=== PATIENT | male | born 1960 | race Caucasian/White ===

== ENCOUNTER 2017-04-05 15:12 | Inpatient (IN) | payer MEDICARE, MEDICAID ==
[~2017-04-05] VITALS: Ht 170.2 cm; Wt 74.4 kg
[~2017-04-05 15:12] MED LIST: ALBU8HFA IH; DIVA500T35 PO; DSS100 PO; LURA40 PO; MULT-1238 PO
[2017-04-05 15:23] VITALS: BP 96/64
[2017-04-05] MEDS ORDERED: TRAZ-144 PO (15:49)
[2017-04-05] MEDS ORDERED: ARIP10TA8 PO (15:49)
[2017-04-05] MEDS ORDERED: BENZ2TAB10 PO (15:49)
[2017-04-05] MEDS ORDERED: DIVA500T35 PO (15:49)
[2017-04-05] MEDS ORDERED: BENZ1TAB10 PO (15:49)
[2017-04-05 16:15] VITALS: BP 102/60
[2017-04-05] MEDS: LORazepam 2 MG TABLET PO PRN (16:46)
[2017-04-05] MEDS ORDERED: PNEUMOCOCCAL VACCINE POLYVALENT 0.5 ML VIAL [PPSV23] IM ONE (18:15)
[2017-04-05] MEDS ORDERED: ALBUTEROL SULFATE HFA 90 MCG/PUFF 8 GM INHALER IH PRN (20:45)
[2017-04-05] MEDS: TraZODone HCL 50 MG TABLET PO SCH (21:02)
[2017-04-05] MEDS: DIVALPROEX SODIUM 500 MG DR TABLET PO SCH (21:02)
[2017-04-05] MEDS: ZOLPIDEM TARTRATE 10 MG TABLET PO PRN (21:02)
[2017-04-06 01:03] VITALS: BP 114/80
[2017-04-06] MEDS: LORazepam 2 MG TABLET PO PRN ×2 (01:07→16:39)
[2017-04-06] MEDS ORDERED: ALBUTEROL SULFATE HFA 90 MCG/PUFF 8 GM INHALER IH PRN (07:00)
[2017-04-06] MEDS ORDERED: MAGNESIUM HYDROXIDE SUSPENSION 30 ML UDCUP PO PRN (07:00)
[2017-04-06] MEDS ORDERED: ACETAMINOPHEN 325 MG TABLET PO PRN (07:00)
[2017-04-06] MEDS ORDERED: BACITRACIN 28.4 GM OINTMENT TP PRN (07:00)
[2017-04-06] MEDS ORDERED: LOPERAMIDE HCL 2 MG CAPSULE PO PRN (07:00)
[2017-04-06] MEDS ORDERED: ONDANSETRON HCL 4 MG TABLET PO PRN (07:00)
[2017-04-06] MEDS ORDERED: MAG HYDROX/AL HYDROX/SIMETH ES 30 ML SUSPENSION UDCUP PO PRN (07:00)
[2017-04-06] MEDS ORDERED: CloNIDine HCL 0.1 MG TABLET PO PRN (07:00)
[2017-04-06] MEDS ORDERED: PETROLATUM,WHITE 71 GM JELLY TP PRN (07:00)
[2017-04-06] MEDS ORDERED: BENZOCAINE/MENTHOL LOZENGE MM PRN (07:00)
[2017-04-06] MEDS ORDERED: IBUPROFEN 600 MG TABLET PO PRN (07:00)
[2017-04-06 08:00] LABS: BASOPHILS # (AUTO) 0.03 K/uL (0.00-0.20); BASOPHILS % (AUTO) 0.6 % (0.0-2.0); EOSINOPHILS # (AUTO) 0.08 K/uL (0.00-0.70); HEMATOCRIT 43.6 % (41-53); HEMOGLOBIN 14.7 g/dL (13.5-17.5); LYMPHOCYTES # (AUTO) 1.8 K/uL (1.0-4.8); LYMPHOCYTES % (AUTO) 37.3 % (22.0-44.0); MEAN CORPUSCULAR HGB CONC 33.8 G/dL (31.0-37.0); MEAN CORPUSCULAR VOLUME 98 fL (80-100); MONOCYTES # (AUTO) 0.4 K/uL (0.1-1.0); MONOCYTES % (AUTO) 7.6 % (2.0-9.0); NEUTROPHILS # (AUTO) 2.5 K/uL (1.8-7.7); NEUTROPHILS % (AUTO) 52.9 % (40.0-70.0); PLATELET COUNT (AUTO) 139 K/uL (150-450); RED BLOOD CELL COUNT(AUTO) 4.47 MIL/uL (4.50-5.90); RED CELL DISTRIBUTION WIDTH 14.9 % (11.5-14.5)
[2017-04-06] MEDS: ARIPiprazole 10 MG TABLET PO SCH (08:19)
[2017-04-06] MEDS: NICOTINE 21 MG/24 HOUR PATCH TD SCH (08:19)
[2017-04-06] MEDS: BENZTROPINE MESYLATE 1 MG TABLET PO SCH (08:19)
[2017-04-06 08:36] VITALS: BP 106/67
[2017-04-06 08:44] LABS: ALANINE AMINOTRANSFERASE 21 U/L (12-78); ALBUMIN 3.8 g/dL (3.4-5.0); ALKALINE PHOSPHATASE 55 U/L (46-116); ANION GAP 6 mmol/L (8-16); ASPARTATE AMINOTRANSFERASE 14 U/L (15-37); BILIRUBIN,TOTAL 0.3 mg/dL (0.1-1.0); CALCIUM, TOTAL 8.9 mg/dL (8.8-10.5); CARBON DIOXIDE 27 mmol/L (22-29); CHLORIDE 101 mmol/L (98-107); CHOL/HDL RATIO 2.5 (4.2-7.3); CHOLESTEROL 133 mg/dL (131-200); CREATININE 0.86 mg/dL (0.60-1.30); FREE T4 (FREE THYROXINE) 1.13 ng/dL (0.76-1.46); GLOMERULAR FILTR. RATE CALC > 60 mL/min (>60); GLUCOSE,RANDOM 80 mg/dL (70-110); HDL CHOLESTEROL 53 mg/dL (40-60); LDL CHOL (CALC.) 72 mg/dL (0-130); POTASSIUM 4.3 mmol/L (3.5-5.1); SODIUM SERUM 134 mmol/L (136-145); TRIGLYCERIDES 40 mg/dL (15-150); UREA NITROGEN, BLOOD 18 mg/dL (7-18); VALPROIC ACID 82 mcg/mL (50-100)
[2017-04-06 09:33] LABS: HEMOGLOBIN A1C 5.3 % (4.5-6.2)
[2017-04-06] MEDS: BENZTROPINE MESYLATE 2 MG TABLET PO SCH (16:33)
[2017-04-06 16:44] VITALS: BP 125/80
[2017-04-06] MEDS: DIVALPROEX SODIUM 500 MG DR TABLET PO SCH (20:06)
[2017-04-06] MEDS: TraZODone HCL 50 MG TABLET PO SCH (20:06)
[2017-04-06] MEDS: ZOLPIDEM TARTRATE 10 MG TABLET PO PRN (21:01)
[2017-04-07 00:29] VITALS: BP 137/81
[2017-04-07] MEDS: ARIPiprazole 10 MG TABLET PO SCH (08:18)
[2017-04-07] MEDS: NICOTINE 21 MG/24 HOUR PATCH TD SCH (08:18)
[2017-04-07] MEDS: BENZTROPINE MESYLATE 1 MG TABLET PO SCH (08:18)
[2017-04-07 08:26] VITALS: BP 105/70
[2017-04-07] MEDS: LORazepam 2 MG TABLET PO PRN (10:02)
[2017-04-07 16:21] VITALS: BP 109/60
[2017-04-07] MEDS: BENZTROPINE MESYLATE 2 MG TABLET PO SCH (17:11)
[2017-04-07] MEDS: TraZODone HCL 50 MG TABLET PO SCH (20:09)
[2017-04-07] MEDS: DIVALPROEX SODIUM 500 MG DR TABLET PO SCH (20:09)
[2017-04-07] MEDS: ZOLPIDEM TARTRATE 10 MG TABLET PO PRN (21:24)
[2017-04-08 00:45] VITALS: BP 103/58
[2017-04-08] MEDS: NICOTINE 21 MG/24 HOUR PATCH TD SCH (08:36)
[2017-04-08] MEDS: BENZTROPINE MESYLATE 1 MG TABLET PO SCH (08:36)
[2017-04-08] MEDS: ARIPiprazole 10 MG TABLET PO SCH (08:36)
[2017-04-08 08:41] VITALS: BP 110/77
[2017-04-08 16:13] VITALS: BP 117/79
[2017-04-08] MEDS: BENZTROPINE MESYLATE 2 MG TABLET PO SCH (16:41)
[2017-04-08] MEDS: TraZODone HCL 50 MG TABLET PO SCH (20:04)
[2017-04-08] MEDS: DIVALPROEX SODIUM 500 MG DR TABLET PO SCH (20:05)
[2017-04-09 02:10] VITALS: BP 109/68
[2017-04-09 08:13] VITALS: BP 127/77
[2017-04-09] MEDS: BENZTROPINE MESYLATE 1 MG TABLET PO SCH (09:18)
[2017-04-09] MEDS: ARIPiprazole 10 MG TABLET PO SCH (09:18)
[2017-04-09] MEDS: NICOTINE 21 MG/24 HOUR PATCH TD SCH (09:18)
[2017-04-09] MEDS: LORazepam 2 MG TABLET PO PRN ×2 (09:18→13:40)
[2017-04-09] MEDS: HALOPERIDOL 5 MG TABLET PO PRN (13:40)
[2017-04-09 16:00] VITALS: BP 100/67
[2017-04-09] MEDS: BENZTROPINE MESYLATE 2 MG TABLET PO SCH (16:02)
[2017-04-09] MEDS: DIVALPROEX SODIUM 500 MG DR TABLET PO SCH (20:30)
[2017-04-09] MEDS: TraZODone HCL 50 MG TABLET PO SCH (20:30)
[2017-04-10 00:51] VITALS: BP 120/74
[2017-04-10 09:30] VITALS: BP 106/71
[2017-04-10] MEDS: ARIPiprazole 10 MG TABLET PO SCH (09:53)
[2017-04-10] MEDS: NICOTINE 21 MG/24 HOUR PATCH TD SCH (09:53)
[2017-04-10] MEDS: BENZTROPINE MESYLATE 1 MG TABLET PO SCH (09:53)
[2017-04-10] MEDS: LORazepam 2 MG TABLET PO PRN (15:47)
[2017-04-10 16:00] VITALS: BP 108/75
[2017-04-10] MEDS: BENZTROPINE MESYLATE 2 MG TABLET PO SCH (16:06)
[2017-04-10] MEDS: DIVALPROEX SODIUM 500 MG DR TABLET PO SCH (20:20)
[2017-04-10] MEDS: ZOLPIDEM TARTRATE 10 MG TABLET PO PRN (20:20)
[2017-04-10] MEDS: TraZODone HCL 50 MG TABLET PO SCH (20:20)
[2017-04-11 07:21] VITALS: BP 110/62
[2017-04-11] MEDS: NICOTINE 21 MG/24 HOUR PATCH TD SCH (08:02)
[2017-04-11] MEDS: BENZTROPINE MESYLATE 1 MG TABLET PO SCH (08:02)
[2017-04-11] MEDS: ARIPiprazole 10 MG TABLET PO SCH (08:02)
[2017-04-11 08:47] VITALS: BP 101/69
[2017-04-11] MEDS: LORazepam 2 MG TABLET PO PRN (15:49)
[2017-04-11 16:00] VITALS: BP 106/78
[2017-04-11] MEDS: BENZTROPINE MESYLATE 2 MG TABLET PO SCH (16:10)
[2017-04-11] MEDS: TraZODone HCL 50 MG TABLET PO SCH (20:13)
[2017-04-11] MEDS: ZOLPIDEM TARTRATE 10 MG TABLET PO PRN (20:13)
[2017-04-11] MEDS: DIVALPROEX SODIUM 500 MG DR TABLET PO SCH (20:13)
[2017-04-12 00:10] VITALS: BP 115/76
[2017-04-12] MEDS: LORazepam 2 MG TABLET PO PRN (06:19)
[2017-04-12] MEDS: BENZTROPINE MESYLATE 1 MG TABLET PO SCH (08:31)
[2017-04-12] MEDS: ARIPiprazole 10 MG TABLET PO SCH (08:31)
[2017-04-12] MEDS: NICOTINE 21 MG/24 HOUR PATCH TD SCH (08:31)
[2017-04-12 08:48] VITALS: BP 100/71
[2017-04-12 16:26] VITALS: BP 116/79
[2017-04-12] MEDS: BENZTROPINE MESYLATE 2 MG TABLET PO SCH (16:31)
[2017-04-12] MEDS: DIVALPROEX SODIUM 500 MG DR TABLET PO SCH (20:15)
[2017-04-12] MEDS: TraZODone HCL 50 MG TABLET PO SCH (20:15)
[2017-04-13 01:50] VITALS: BP 102/69
[2017-04-13] MEDS: NICOTINE 21 MG/24 HOUR PATCH TD SCH (08:10)
[2017-04-13] MEDS: BENZTROPINE MESYLATE 1 MG TABLET PO SCH (08:10)
[2017-04-13] MEDS: ARIPiprazole 10 MG TABLET PO SCH (08:10)
[2017-04-13 09:01] VITALS: BP 120/68
[2017-04-13] MEDS: HALOPERIDOL 5 MG TABLET PO PRN (13:40)
[2017-04-13] MEDS: LORazepam 2 MG TABLET PO PRN (16:41)
[2017-04-13] MEDS: BENZTROPINE MESYLATE 2 MG TABLET PO SCH (16:41)
[2017-04-13 17:52] VITALS: BP 117/74
[2017-04-13] MEDS: TraZODone HCL 50 MG TABLET PO SCH (20:16)
[2017-04-13] MEDS: DIVALPROEX SODIUM 500 MG DR TABLET PO SCH (20:16)
[2017-04-13] MEDS: ZOLPIDEM TARTRATE 10 MG TABLET PO PRN (20:17)
[2017-04-14 05:44] VITALS: BP 109/62
[2017-04-14] MEDS: NICOTINE 21 MG/24 HOUR PATCH TD SCH (08:02)
[2017-04-14] MEDS: ARIPiprazole 10 MG TABLET PO SCH (08:02)
[2017-04-14] MEDS: BENZTROPINE MESYLATE 1 MG TABLET PO SCH (08:02)
[2017-04-14 08:36] VITALS: BP 142/63
[2017-04-14] MEDS: BENZTROPINE MESYLATE 2 MG TABLET PO SCH (16:12)
[2017-04-14] MEDS: LORazepam 2 MG TABLET PO PRN (16:12)
[2017-04-14 17:32] VITALS: BP 126/84
[2017-04-14] MEDS: TraZODone HCL 50 MG TABLET PO SCH (20:02)
[2017-04-14] MEDS: DIVALPROEX SODIUM 500 MG DR TABLET PO SCH (20:02)
[2017-04-14] MEDS: ZOLPIDEM TARTRATE 10 MG TABLET PO PRN (20:20)
[2017-04-15 00:41] VITALS: BP 118/65
[2017-04-15 08:28] VITALS: BP 106/60
[2017-04-15] MEDS: BENZTROPINE MESYLATE 1 MG TABLET PO SCH (09:20)
[2017-04-15] MEDS: ARIPiprazole 10 MG TABLET PO SCH (09:20)
[2017-04-15] MEDS: NICOTINE 21 MG/24 HOUR PATCH TD SCH (09:20)
[2017-04-15] MEDS: HALOPERIDOL 5 MG TABLET PO PRN (14:19)
[2017-04-15] MEDS: BENZTROPINE MESYLATE 2 MG TABLET PO SCH (16:49)
[2017-04-15 18:23] VITALS: BP 123/69
[2017-04-15] MEDS: TraZODone HCL 50 MG TABLET PO SCH (20:04)
[2017-04-15] MEDS: DIVALPROEX SODIUM 500 MG DR TABLET PO SCH (20:04)
[2017-04-15] MEDS: ZOLPIDEM TARTRATE 10 MG TABLET PO PRN (20:43)
[2017-04-16 01:15] VITALS: BP 124/68
[2017-04-16 08:30] VITALS: BP 100/70
[2017-04-16] MEDS: ARIPiprazole 10 MG TABLET PO SCH ×3 (08:46→16:42)
[2017-04-16] MEDS: BENZTROPINE MESYLATE 1 MG TABLET PO SCH (08:46)
[2017-04-16] MEDS: NICOTINE 21 MG/24 HOUR PATCH TD SCH (08:47)
[2017-04-16] MEDS ORDERED: PALIPERIDONE PALMITATE 156 MG/ML SYRINGE IM SCH (09:00)
[2017-04-16] MEDS ORDERED: TUBERCULIN, PURIFIED PROTEIN DERIVATIVE 5 TU/0.1 ML SYG ID ONE (10:00)
[2017-04-16 16:24] VITALS: BP 109/76
[2017-04-16] MEDS: BENZTROPINE MESYLATE 2 MG TABLET PO SCH (16:38)
[2017-04-16] MEDS: ZOLPIDEM TARTRATE 10 MG TABLET PO PRN (20:01)
[2017-04-16] MEDS: TraZODone HCL 50 MG TABLET PO SCH (20:01)
[2017-04-16] MEDS: DIVALPROEX SODIUM 500 MG DR TABLET PO SCH (20:01)
[2017-04-16] MEDS: LORazepam 2 MG TABLET PO PRN (21:11)
[2017-04-17 06:30] VITALS: BP 108/71
[2017-04-17 08:59] VITALS: BP 127/67
[2017-04-17] MEDS: BENZTROPINE MESYLATE 1 MG TABLET PO SCH (09:53)
[2017-04-17] MEDS: LORazepam 2 MG TABLET PO PRN ×2 (09:53→16:00)
[2017-04-17] MEDS: NICOTINE 21 MG/24 HOUR PATCH TD SCH (09:53)
[2017-04-17] MEDS: ARIPiprazole 10 MG TABLET PO SCH ×2 (09:53→16:00)
[2017-04-17 16:00] VITALS: BP 117/84
[2017-04-17] MEDS: BENZTROPINE MESYLATE 2 MG TABLET PO SCH (16:00)
[2017-04-17] MEDS: DIVALPROEX SODIUM 500 MG DR TABLET PO SCH (20:35)
[2017-04-17] MEDS: TraZODone HCL 50 MG TABLET PO SCH (20:35)
[2017-04-18 00:05] VITALS: BP 111/65
[2017-04-18 08:16] VITALS: BP 100/60
[2017-04-18] MEDS: ARIPiprazole 10 MG TABLET PO SCH ×2 (08:51→16:06)
[2017-04-18] MEDS: NICOTINE 21 MG/24 HOUR PATCH TD SCH (08:51)
[2017-04-18] MEDS: BENZTROPINE MESYLATE 1 MG TABLET PO SCH (08:51)
[2017-04-18] MEDS: LORazepam 2 MG TABLET PO PRN (15:53)
[2017-04-18 16:00] VITALS: BP 113/84
[2017-04-18] MEDS: BENZTROPINE MESYLATE 2 MG TABLET PO SCH (16:06)
[2017-04-18] MEDS: DIVALPROEX SODIUM 500 MG DR TABLET PO SCH (20:02)
[2017-04-18] MEDS: TraZODone HCL 50 MG TABLET PO SCH (20:02)
[2017-04-18] MEDS: ZOLPIDEM TARTRATE 10 MG TABLET PO PRN (20:02)
[2017-04-19 01:17] VITALS: BP 110/63
[2017-04-19 09:08] VITALS: BP 112/74
[2017-04-19] MEDS: ARIPiprazole 10 MG TABLET PO SCH ×2 (09:12→16:34)
[2017-04-19] MEDS: BENZTROPINE MESYLATE 1 MG TABLET PO SCH (09:12)
[2017-04-19] MEDS: NICOTINE 21 MG/24 HOUR PATCH TD SCH (09:13)
[2017-04-19 16:20] VITALS: BP 118/69
[2017-04-19] MEDS: LORazepam 2 MG TABLET PO PRN (16:34)
[2017-04-19] MEDS: BENZTROPINE MESYLATE 2 MG TABLET PO SCH (16:34)
[2017-04-19] MEDS: DIVALPROEX SODIUM 500 MG DR TABLET PO SCH (20:05)
[2017-04-19] MEDS: ZOLPIDEM TARTRATE 10 MG TABLET PO PRN (20:05)
[2017-04-19] MEDS: TraZODone HCL 50 MG TABLET PO SCH (20:05)
[2017-04-19] MEDS ORDERED: SODIUM CHLORIDE 1 GM TABLET PO ONE (21:30)
[2017-04-20 01:33] VITALS: BP 100/59
[2017-04-20] MEDS: ARIPiprazole 10 MG TABLET PO SCH (08:55)
[2017-04-20] MEDS: BENZTROPINE MESYLATE 1 MG TABLET PO SCH (08:55)
[2017-04-20] MEDS: NICOTINE 21 MG/24 HOUR PATCH TD SCH (08:55)
[2017-04-20 10:15] VITALS: BP 115/62
[2017-04-20] MEDS ORDERED: PALI156D IM (16:05)
== END 2017-04-20 16:30 | DRG 885 ==
LOC: B2S 15:38
PROVIDERS: ADMIT Psychiatry & Neurology Child & Adolescent Psychiatry; ATTEND Psychiatry & Neurology Child & Adolescent Psychiatry
DX: F20.0 Paranoid schizophrenia (principal); G40.909 Epilepsy, unspecified, not intractable, without status epilepticus; F12.90 Cannabis use, unspecified, uncomplicated; F17.200 Nicotine dependence, unspecified, uncomplicated; F41.9 Anxiety disorder, unspecified; J44.9 Chronic obstructive pulmonary disease, unspecified; Z56.0 Unemployment, unspecified; K59.00 Constipation, unspecified; Z71.51 Drug abuse counseling and surveillance of drug abuser; Z71.6 Tobacco abuse counseling; M24.542 Contracture, left hand; G25.0 Essential tremor; R32 Unspecified urinary incontinence; Z79.899 Other long term (current) drug therapy
CPT/HCPCS: 83036; 84295; 84439; 84443